=== PATIENT | female | born 2000 | race Caucasian/White ===

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

== ENCOUNTER 2020-08-17 20:17 | Emergency (ER) | payer OTHER ==
[~2020-08-17] VITALS: Ht 154.9 cm; Wt 109.1 kg
[2020-08-17] MEDS ORDERED: KETOROLAC 30 MG/ML 1ML VIAL IV ONE (22:15)
[2020-08-17] MEDS ORDERED: diazePAM 10MG/2ML SYRINGE (J3360 PER 5MG) IV ONE (22:15)
[2020-08-17 22:19] LABS: BASO % 0.4 % (0.0-1.0); EOS # 0.1 10^3/uL (0.0-0.5); EOS % 1.3 % (0.0-3.0); HEMATOCRIT 37.1 % (36.0-47.0); HEMOGLOBIN 11.3 g/dl (12.0-15.5); LYMPH # 2.5 10^3/uL (1.5-5.0); LYMPH % 23.9 % (24.0-44.0); MEAN CORPUSCULAR HEMOGLOBIN 25.5 pg (27.0-33.0); MEAN CORPUSCULAR HGB CONC 30.5 g/dl (32.0-36.5); MEAN CORPUSCULAR VOLUME 83.7 fl (80.0-96.0); MONO # 0.8 10^3/uL (0.0-0.8); MONO % 7.8 % (2.0-8.0); NEUTROPHILS # 6.9 10^3/uL (1.5-8.5); NEUTROPHILS % 66.4 % (36.0-66.0); PLATELET COUNT, AUTOMATED 395 10^3/uL (150-450); RED BLOOD COUNT 4.43 10^6/uL (4.00-5.40); WHITE BLOOD COUNT 10.4 10^3/uL (4.0-10.0)
[2020-08-17 22:36] LABS: BILIRUBIN,DIRECT 0.2 MG/DL (0.0-0.2); BILIRUBIN,TOTAL 0.4 MG/DL (0.2-1.0); C REACTIVE PROTEIN QUANTITATIV 2.95 MG/DL (0.00-0.30)
[2020-08-17 22:37] LABS: ERYTHROCYTE SEDIMENTATION RATE 67 mm/hr (0-20)
[2020-08-17] MEDS ORDERED: METH4PACK (23:20)
[2020-08-17] MEDS ORDERED: METO1TAB32 (23:20)
[2020-08-17] MEDS ORDERED: OXYC1TAB23 (23:20)
[2020-08-17 23:30] VITALS: BP 113/59
== END 2020-08-18 00:39 | disposition home or self-care (01) ==
LOC: M ED 20:17
DX: M54.5 Low back pain (principal); M25.552 Pain in left hip; J45.909 Unspecified asthma, uncomplicated; A74.9 Chlamydial infection, unspecified; I10 Essential (primary) hypertension; Z86.16 Personal history of COVID-19
CPT/HCPCS: 80047; 80076; 83605; 83690; 85025; 85652; 86140; 87040; 96374; 96375; 99284; J1885; J3360

== ENCOUNTER → 2021-06-21 | Outpatient (CLI) | payer OTHER ==
[~2021-06-21] MED LIST: METH4PACK; METO1TAB32; OXYC1TAB23
[2021-06-21 18:01] LABS: HEMATOCRIT 32.3 % (36.0-47.0); HEMOGLOBIN 10.2 g/dl (12.0-15.5); MEAN CORPUSCULAR HEMOGLOBIN 24.5 pg (27.0-33.0); MEAN CORPUSCULAR HGB CONC 31.6 g/dl (32.0-36.5); MEAN CORPUSCULAR VOLUME 77.6 fl (80.0-96.0); PLATELET COUNT, AUTOMATED 264 10^3/uL (150-450); RED BLOOD COUNT 4.16 10^6/uL (4.00-5.40)
== END ==
LOC: M PLALAB 13:36
PROVIDERS: ATTEND Obstetrics & Gynecology
DX: R73.01 Impaired fasting glucose (principal)

== ENCOUNTER → 2021-07-06 | Outpatient (CLI) | payer OTHER ==
--- NOTE | 2021-07-07 07:11 | REP ---
INDICATION: UTERINE SIZE-DATE DISCREPANCY IN 3RD TRI/30 WKS GESTATION COMPARISON: None. TECHNIQUE: Transabdominal obstetrical ultrasound with color Doppler evaluation. FINDINGS: Examination demonstrates a single live intrauterine in cephalic presentation. motion is identified by technologist. Placenta is noted posterior and grade 2 without evidence for placenta previa or abruption. Amniotic fluid volume is normal. Cervix measures 3.2 cm in length and appears closed.. Selected gestational age: 32 weeks 6 days with MG 08/25/2021. Gestational age by current measurements 33 weeks 0 days with MG 08/24/2021. FHR equals 139 beats per minute. ALONA: 13.3 cm (8.3-24.5) Umbilical artery SD ratio: 2.48 Estimated weight 2234 grams (64thpercentile). IMPRESSION: Single live intrauterine in cephalic presentation demonstrating appropriate estimated weight and growth. <Electronically signed by Vishnu Howard > 07/07/21 [id number]
== END ==
LOC: M WHC 10:01
PROVIDERS: ATTEND Obstetrics & Gynecology
DX: O26.843 Uterine size-date discrepancy, third trimester (principal); Z3A.30 30 weeks gestation of pregnancy

== ENCOUNTER → 2021-08-01 | Outpatient (REF) | payer OTHER ==
[~2021-08-01] MED LIST changes: +COLA100C5 PO; +IBUP80TA PO; +IRON1TAB2 PO; +MULTTAB20 PO; +PERCOCET PO
== END ==
LOC: M SFHCWAGY 17:07
PROVIDERS: ATTEND Obstetrics & Gynecology
DX: O34.211 Maternal care for low transverse scar from previous cesarean delivery (principal)

== ENCOUNTER 2021-08-07 10:19 | Emergency (ER) | payer OTHER ==
[~2021-08-07] VITALS: Ht 154.9 cm; Wt 131.8 kg
[~2021-08-07 10:19] MED LIST changes: -COLA100C5 PO; -IBUP80TA PO; -PERCOCET PO
[2021-08-07] MEDS ORDERED: ISOVUE-370 76% 100ML VIAL As Ordered ONE (12:19)
[2021-08-07 13:41] VITALS: BP 121/60
== END 2021-08-07 13:42 | disposition home or self-care (01) ==
LOC: M ED 10:19
DX: O99.419 Diseases of the circulatory system complicating pregnancy, unspecified trimester (principal); R09.1 Pleurisy; Z3A.00 Weeks of gestation of pregnancy not specified
CPT/HCPCS: 36415; 71275; 80047; 93005; 99284; Q9967

== ENCOUNTER → 2021-08-13 | Outpatient (CLI) | payer OTHER | LOC: M LABSMTC 09:24 | PROVIDERS: ATTEND Anesthesiology | DX: Z01.812 Encounter for preprocedural laboratory examination (principal); Z20.822 Contact with and (suspected) exposure to COVID-19 ==

== ENCOUNTER 2021-08-18 05:30 | Inpatient (IN) | payer OTHER ==
[2021-08-18] VITALS (8 sets, daily range): BP systolic 94–121; BP diastolic 47–59
[~2021-08-18] VITALS: Ht 154.9 cm; Wt 137.4 kg
[2021-08-18] MEDS ORDERED: ceFAZolin SOD 1 GM in D5W MINI-BAG PLUS 50 ML IV ONE (06:00)
[2021-08-18] MEDS ORDERED: ceFAZolin SOD 2 GM in IV 1 EA IV ONE (06:00)
[2021-08-18] MEDS ORDERED: BICITRA 30ML SOLN UDC PO ONE (06:00)
[2021-08-18 07:13] LABS: HEMATOCRIT 28.6 % (36.0-47.0); HEMOGLOBIN 8.8 g/dl (12.0-15.5); MEAN CORPUSCULAR HEMOGLOBIN 21.3 pg (27.0-33.0); MEAN CORPUSCULAR HGB CONC 30.8 g/dl (32.0-36.5); MEAN CORPUSCULAR VOLUME 69.2 fl (80.0-96.0); PLATELET COUNT, AUTOMATED 264 10^3/uL (150-450); RED BLOOD COUNT 4.13 10^6/uL (4.00-5.40); WHITE BLOOD COUNT 11.3 10^3/uL (4.0-10.0)
[2021-08-18] MEDS ORDERED: LR 1,000 ML IV SCH (07:40)
[2021-08-18] MEDS ORDERED: LR 1,000 ML IV ONE ×2 (07:40→13:50)
[2021-08-18] MEDS ORDERED: MORPHINE PRES-FREE INJ 10 MG/10 ML VIAL (J2274) As Ordered ONE (08:09)
[2021-08-18] MEDS ORDERED: OXYTOCIN INJ 10 UNITS/ML VIAL (J2590) As Ordered ONE ×2 (08:15→09:50)
[2021-08-18] MEDS ORDERED: METOCLOPRAMIDE INJ 10MG/2ML VIAL (J2765 PER 1) As Ordered ONE (08:19)
[2021-08-18] MEDS ORDERED: MEASLES,MUMPS,RUBELLA VACCINE INJ (MMR-II) (90707) SC SCH (08:50)
[2021-08-18] MEDS ORDERED: RHOGAM 300 MCG (1500 IU) INJ (J2790) IM SCH (08:50)
[2021-08-18] MEDS ORDERED: SIMETHICONE 80MG CHEW TAB PO PRN (08:50)
[2021-08-18] MEDS ORDERED: ONDANSETRON 4MG/2ML VIAL IV PRN ×2 (08:50→10:10)
[2021-08-18] MEDS ORDERED: OXYTOCIN DRIP 30 UNITS in IV 1 EA IV SCH (08:50)
[2021-08-18] MEDS ORDERED: MOM 30ML SUSPENSION UDC PO PRN (08:50)
[2021-08-18] MEDS ORDERED: PERCOCET 5MG/325MG TAB PO PRN (08:50)
[2021-08-18] MEDS: PRENATAL VITAMINS CHEWABLE TABLET PO SCH (09:00)
[2021-08-18] MEDS: DOCUSATE SODIUM 100MG CAPSULE PO SCH ×2 (09:00→21:29)
[2021-08-18] MEDS ORDERED: ACETAMINOPHEN 1000MG 100ML IV BTL (OFIRMEV) (J0131 PER 10MG) As Ordered ONE (09:11)
[2021-08-18] MEDS ORDERED: ONDANSETRON 4MG/2ML VIAL As Ordered ONE (09:14)
[2021-08-18] MEDS ORDERED: KETOROLAC 60MG 2ML VIAL As Ordered ONE (09:14)
[2021-08-18] MEDS ORDERED: OXYTOCIN 30 UNITS IN 0.9% NaCl 500ML IV BAG (J2590) As Ordered ONE (09:48)
[2021-08-18] MEDS ORDERED: NALBUPHINE HCL 10 MG/ML AMP (J2300) IV PRN (10:10)
[2021-08-18] MEDS ORDERED: HYDROMORPHONE HCL 0.5 MG/ 0.5 ML SYRINGE (J1170 PER 1) IV PRN (10:10)
[2021-08-18] MEDS ORDERED: oxyCODONE 5MG TAB PO PRN (10:10)
[2021-08-18] MEDS ORDERED: fentaNYL 100 MCG/2 ML INJECTION IV PRN (10:10)
[2021-08-18] MEDS ORDERED: MEPERIDINE INJ 25 MG/ML VIAL (J2175) IV PRN (10:10)
[2021-08-18] MEDS ORDERED: NALBUPHINE HCL 10 MG/ML AMP (J2300) As Ordered ONE (10:30)
[2021-08-18] MEDS ORDERED: HYDROMORPHONE HCL 0.5 MG/ 0.5 ML SYRINGE (J1170 PER 1) As Ordered ONE (10:33)
[2021-08-18] MEDS: LR 1,000 ML IV SCH (15:26)
[2021-08-18] MEDS ORDERED: HOME MED LIST COMPLETE! XX SCH (15:35)
[2021-08-18] MEDS: KETOROLAC 30 MG/ML 1ML VIAL IV SCH ×2 (16:15→21:29)
[2021-08-19] MEDS: LR 1,000 ML IV SCH (00:48)
[2021-08-19 02:00] VITALS: BP 110/53
[2021-08-19] MEDS: KETOROLAC 30 MG/ML 1ML VIAL IV SCH (04:00)
[2021-08-19 06:00] VITALS: BP 126/58
[2021-08-19 09:02] LABS: HEMATOCRIT 25.3 % (36.0-47.0); HEMOGLOBIN 7.7 g/dl (12.0-15.5); MEAN CORPUSCULAR HEMOGLOBIN 21.6 pg (27.0-33.0); MEAN CORPUSCULAR HGB CONC 30.4 g/dl (32.0-36.5); MEAN CORPUSCULAR VOLUME 71.1 fl (80.0-96.0); PLATELET COUNT, AUTOMATED 209 10^3/uL (150-450); RED BLOOD COUNT 3.56 10^6/uL (4.00-5.40); WHITE BLOOD COUNT 10.6 10^3/uL (4.0-10.0)
[2021-08-19 10:00] VITALS: BP 134/67
[2021-08-19] MEDS ORDERED: COLA100C5 PO (10:11)
[2021-08-19] MEDS ORDERED: IBUP80TA PO (10:11)
[2021-08-19] MEDS ORDERED: PERCOCET PO (10:11)
[2021-08-19] MEDS: PRENATAL VITAMINS CHEWABLE TABLET PO SCH (11:42)
[2021-08-19] MEDS: DOCUSATE SODIUM 100MG CAPSULE PO SCH ×2 (11:42→20:38)
[2021-08-19] MEDS: IBUPROFEN 800 MG TAB PO SCH ×2 (11:43→20:38)
[2021-08-19] MEDS: PERCOCET 5MG/325MG TAB PO PRN ×2 (12:48→20:37)
[2021-08-19 14:00] VITALS: BP 135/79
[2021-08-19 18:00] VITALS: BP 126/60
[2021-08-19] MEDS: BENZONATATE 100MG CAPSULE PO PRN (21:16)
[2021-08-19 22:00] VITALS: BP 133/74
[2021-08-20 02:00] VITALS: BP 132/77
[2021-08-20] MEDS: IBUPROFEN 800 MG TAB PO SCH ×2 (04:32→12:36)
[2021-08-20 05:14] VITALS: BP 126/58
[2021-08-20] MEDS: BENZONATATE 100MG CAPSULE PO PRN (09:41)
[2021-08-20] MEDS: PRENATAL VITAMINS CHEWABLE TABLET PO SCH (09:41)
[2021-08-20] MEDS: DOCUSATE SODIUM 100MG CAPSULE PO SCH (09:41)
[2021-08-20] MEDS ORDERED: medroxyPROGESTERone ACET IM SUSP 150 MG/ML VIAL (J1050) IM ONE (10:45)
== END 2021-08-20 14:30 | disposition home or self-care (01) | DRG 540 ==
LOC: M LDI 05:30 → M OBS 11:05
PROVIDERS: ADMIT Obstetrics & Gynecology; ATTEND Obstetrics & Gynecology
PROC: 10D00Z1 Extraction of Products of Conception, Low, Open Approach (ICD-10-PCS; principal; 2021-08-18 08:30)
DX: O34.211 Maternal care for low transverse scar from previous cesarean delivery (principal); D64.9 Anemia, unspecified; O99.02 Anemia complicating childbirth; Z3A.39 39 weeks gestation of pregnancy; Z37.0 Single live birth